=== PATIENT | female | born 1975 | race Two or more races ===

== ENCOUNTER 2022-02-09 14:57 | Emergency (ER) | payer OTHER ==
[~2022-02-09] VITALS: Ht 160 cm; Wt 79.4 kg
[2022-02-09] MEDS ORDERED: LEVSIN/SL0.125 MG SL (21:52)
[2022-02-09] MEDS ORDERED: CARAFATE1 GM PO (21:52)
[2022-02-09] MEDS ORDERED: PRILOSEC OTC20 MG PO (21:52)
== END 2022-02-09 22:10 | disposition home or self-care (01) ==
LOC: ER 14:57
DX: R10.9 Unspecified abdominal pain (principal); Z88.6 Allergy status to analgesic agent; Z87.19 Personal history of other diseases of the digestive system

== ENCOUNTER 2022-07-26 18:51 | Emergency (ER) | payer OTHER ==
[~2022-07-26] VITALS: Ht 160 cm; Wt 81.6 kg
[~2022-07-26 18:51] MED LIST: CARAFATE1 GM PO; LEVSIN/SL0.125 MG SL; PRILOSEC OTC20 MG PO
[2022-07-26] MEDS ORDERED: SYNTHROID112 MCG PO (19:08)
[2022-07-26] MEDS ORDERED: PROAIR RESPICL90 MCG IH (19:09)
== END 2022-07-27 00:09 | disposition home or self-care (01) ==
LOC: ER 18:51
DX: J45.909 Unspecified asthma, uncomplicated (principal); Z20.822 Contact with and (suspected) exposure to COVID-19; E03.8 Other specified hypothyroidism; Z88.6 Allergy status to analgesic agent

== ENCOUNTER 2023-11-13 18:25 | Emergency (ER) | payer OTHER ==
[~2023-11-13] VITALS: Ht 160 cm; Wt 72.6 kg
[~2023-11-13 18:25] MED LIST changes: +PROAIR RESPICL90 MCG IH; +SYNTHROID112 MCG PO
[2023-11-13] MEDS ORDERED: SINGULAIR10 MG PO (19:44)
[2023-11-13 22:47] LABS: PH,URINE 6.5 (5.0-8.0); URINE APPEARANCE Clear; URINE BILIRRUBIN Negative (NEGATIVE); URINE BLOOD Moderate; URINE COLOR Yellow; URINE GLUCOSE Negative (NEGATIVE); URINE KETONE Negative (NEGATIVE); URINE LEUKOCYTE Moderate; URINE NITRATE Negative; URINE PROTEIN Negative (NEGATIVE)
[2023-11-13 22:50] LABS: HEMATOCRIT 38.1 % (36.0-45.00); HEMOGLOBIN 13.2 g/dL (12.0-15.00); MEAN CORPUSCULAR HEMOGLOBIN 28.6 pg (27.00-32.0); MEAN CORPUSCULAR HGB CONC 34.5 g/dl (32.0-36.0); PLATELET COUNT 472 K/uL (150-450); RED BLOOD COUNT 4.59 M/uL (4.00-6.00); RED CELL DISTRIBUTION WIDTH 12.9 % (11.5-14.5)
[2023-11-13 22:51] LABS: URINE BACTERIA 3226.8 uL (0.0-1933); URINE EPITHELIAL CELLS 10.9 uL (0.0-38.8); URINE RBC 63.8 uL (0.0-20.8); URINE WBC 306.5 uL (0.0-23.2)
[2023-11-13 23:02] LABS: URINE CAST 0.45 uL (0.0-1.40)
[2023-11-13 23:10] LABS: CALCIUM 9.8 mg/dL (8.5-10.1); CREATININE SERUM 0.69 mg/dL (0.55-1.02); GFR 91.19; POTASSIUM 3.93 mEq/L (3.5-5.1)
[2023-11-13] MEDS ORDERED: CEFTRIAXONE SODIUM 1,000 MG VIAL IM STA (23:57)
== END 2023-11-14 00:13 | disposition home or self-care (01) ==
LOC: ER 18:27
PROVIDERS: General Practice
DX: N39.0 Urinary tract infection, site not specified (principal); R42 Dizziness and giddiness; Z88.6 Allergy status to analgesic agent; Z87.09 Personal history of other diseases of the respiratory system